=== PATIENT | female | born 1945 | race Caucasian/White ===

== ENCOUNTER 2022-04-23 11:28 | Observation (INO) | payer MEDICARE, SELFPAY ==
--- NOTE | ~2022-04-23 | CT_ITS ---
EXAMINATION: CT abdomen pelvis wo con DATE: 04/23/2022 13:50 INDICATION: Abdominal pain TECHNIQUE: Computed tomography (CT) of the abdomen and pelvis was performed without intravenous contr ast. Automated exposure control and iterative reconstruction technique were employed. The dose-length product was 595.74 mGy-cm. COMPARISON: None FINDINGS: Lung bases are clear. Heart size is normal. Aortic valve calcific lesion. No pericardial or pleural e ffusion. Small sliding-type hiatal hernia. 5.9 cm cyst in the left hepatic lobe. Cholecystectomy clip s at the gallbladder fossa. A few splenic calcifications consistent with old granulomatous disease. P ancreas and left adrenal gland are normal. 1.8 cm low-attenuation right adrenal adenoma. Bilateral re nal cysts the largest measuring 3.3 cm at the upper pole of the right kidney. Bilateral nonobstructin g nephrolithiasis with approximately 10 stones in both the left and right kidneys measuring up to 4 m m in the right kidney and 5 mm in the left kidney. No ureteral stones or hydronephrosis. Bladder is n ormal. The uterus is not identified and has likely been surgically resected. Mild diverticulosis with sigmoid and descending colon predominance. There is focal wall thickening and surrounding inflammato ry stranding at the proximal sigmoid colon consistent with diverticulitis. No abscess or free intrape ritoneal gas. Small bowel and appendix are normal. Mild lumbar levocurvature with mild lumbar and mod erate lower thoracic spondylosis. IMPRESSION: 1. Radiographically uncomplicated sigmoid diverticulitis. 2. Bilateral nonobstructing nephrolithiasis. Reviewed, dictated and finalized at location A.
[2022-04-23 11:34] VITALS: BP 132/77; PULSE 95; RESP 16; TEMP 37.5; O2SAT 100
[2022-04-23] MEDS: methylPREDNISolone SOD SUCC 125 MG VIAL IV PUSH (12:52)
[2022-04-23] MEDS: SODIUM CHLORIDE 0.9% IV 1,000 ML 999 ML IV CONT (12:52)
[2022-04-23] MEDS: FAMOTIDINE 20 MG/2 ML VIAL IV PUSH ×2 (12:52→20:38)
[2022-04-23 13:05] LABS: Basophils Percent Auto 0.2 % (0.2-1.2); Eosinophils Percent Auto 0.2 % (0-4.4); Hematocrit 40.8 % (37.0-47.0); Hemoglobin 13.3 g/dL (12.0-15.0); Immature Granulocyte Absolute 0.06 K/mm3 (0.00-0.031); Immature Granulocyte Percent A 0.6 % (0-0.5); Lymphocytes Absolute Auto 1.56 K/mm3 (0.9-3.2); Lymphocytes Percent Auto 15.2 % (18.3-44.2); Mean Corpuscular HGB Conc 32.6 g/dl (32-36); Mean Corpuscular Hemoglobin 31.9 pg (26-34); Mean Corpuscular Volume 97.8 fl (80-100); Mean Platelet Volume 10.5 fl (7.4-10.4); Monocytes Percent Auto 9.5 % (2.6-8.5); Neutrophils Absolute Auto 7.6 K/mm3 (1.3-6.7); Neutrophils Percent Auto 74.3 % (45.5-73.1); Platelet Count Result 275 k/mm3 (150-375); Red Blood Count 4.17 M/mm3 (4.2-5.4); Red Cell Distribution Width 11.1 % (11.5-14.5); White Blood Count 10.2 K/mm3 (4.5-10.0)
[2022-04-23 13:13] LABS: Lactic Acid Reflex 1.1 mmol/L (0.7-2.0)
[2022-04-23 13:14] LABS: Alanine Aminotransferase 26 U/L (6-35); Albumin Level 4.1 g/dL (3.5-5.1); Alkaline Phosphatase 148 U/L (38-126); Anion Gap 8 mmol/L (8-16); Aspartate Amino Transferase 38 U/L (14-36); Blood Urea Nitrogen 14 mg/dL (7-17); Calcium 9.3 mg/dL (8.4-10.2); Carbon Dioxide 23 mmol/L (22-30); Chloride 103 mmol/L (98-107); Estimated CRCL calculation 51 ml/min; Estimated Glomerular Filt Rate > 60; Glucose 90 mg/dL (65-110); Lipase 65 U/L (23-300); Potassium 3.8 mmol/L (3.4-5.0); Sodium 134 mmol/L (137-145)
[2022-04-23 13:19] LABS: INR 1.2; Prothrombin Time 14.7 Seconds (11.1-14.7)
[2022-04-23 13:21] LABS: Partial Thromboplastin Time 36.7 SECONDS (22.3-36.8)
[2022-04-23 13:33] LABS: Appearance Urine Cloudy (Clear); Bacteria Urine None Seen /hpf; Bilirubin Urine 2+ (Negative); Blood Urine Negative (Negative); Color Urine Dark Yellow (Yellow); Glucose Urine UA Negative (Negative); Granular Casts Urine Present /lpf; Ketones Urine 2+ mg/dL (Negative); Leukocyte Esterase Ur 2+ LEU/UL (Negative); Mucus Urine Present /lpf; Nitrate Urine Negative (Negative); Non Pathogenic Casts >20; Protein Urine 1+ mg/dL (Negative); RBC Urine 0-2 /hpf (0-2); Specific Grav Ur 1.022 (1.001-1.035); Squamous Epithelial Cell Urine Moderate /hpf (Few); pH Urine 5.5 (5.0-9.0)
[2022-04-23 13:37] LABS: Transitional Epi Cells Urine Present /hpf (None Seen)
[2022-04-23 13:38] LABS: Add Urine Microscopic? YES
--- NOTE | 2022-04-23 14:25 | ED.GENADULT ---
HPI - General Adult General Chief complaint: Unspecified Stated complaint: allergic reaction-rash/fatigue Time Seen by Provider: 04/23/22 12:18 Source: RN notes reviewed History of Present Illness HPI narrative: Patient presents emergency department from home for allergic reaction. Patient states that she has not been feeling well over the past several days states she has been feeling weak and tired states has been associated with diffuse abdominal pain described as cramping as well as some dysuria. She states she called her PCP yesterday and was started on Cipro which she is taken 2 doses of she states she noted that she began to have big red welts following her Cipro that are itchy in nature that are on her leg and arm and back states she is more allergic reaction and came to the ER for further evaluation. States she continues to feel weak and tired she denies any fevers or chills she denies any swelling of the lips or tongue denies any shortness of breath chest pain vomiting or any other symptoms states she has been feeling dehydrated Related Data Home Medications Medication Instructions Recorded Confirmed ciprofloxacin HCl 500 mg tablet mg 04/23/22 04/23/22 levothyroxine 75 mcg tablet mcg 04/23/22 lisinopril 20 mg tablet mg 04/23/22 omeprazole 20 mg capsule,delayed mg 04/23/22 release prednisolone acetate 1 % eye drp 04/23/22 drops,suspension Allergies Allergy/AdvReac Type Severity Reaction Status Date / Time ciprofloxacin Allergy Rash Verified 04/23/22 14:35 epinephrine AdvReac Palpitation Verified 04/23/22 11:32 s Review of Systems Review of Systems: Gen.: Denies fevers or chills ENT: Denies congestion Respiratory: Denies shortness of breath or cough CV: Denies chest pain or palpitations GI: Reports abdominal pain, denies nausea, emesis or diarrhea reports dysuria Musculoskeletal: Denies back pain or muscle pain Neuro: Reports generalized weakness Skin: Denies rash Except as documented, all other systems reviewed and negative [facility] Past Medical History Medical History (Updated 04/23/22 @ 14:30 by Kevin Hollins DO) Hypertension Social History Social History (Updated 04/23/22 @ 14:27 by Kevin Hollins DO) Smoking status: Never smoker Exam Narrative: APPEARANCE: No acute distress, nontoxic, resting in bed EYES: EOMI HEENT: Normocephalic, atraumatic, OMM RESPIRATORY: No respiratory distress Clear to auscultation bilaterally with no rhonchi wheezing or rales. CARDIOVASCULAR: Regular rate and rhythm without murmurs rubs or gallops. ABDOMINAL: Soft, nondistended diffusely tender to palpation no rebound or guarding MUSCULOSKELETAl: Moves all extremities. No clubbing, cyanosis or edema. NEURO: Awake and alert. Following commands, speech normal, no focal deficits SKIN:: Warm, dry. Large red welts on the right leg back and in the left arm consistent with allergic reaction PSYCHIATRIC: Normal affect/mood, Course Course Emergency Course: Patient given prednisone and Pepcid in ED with improvement of rash Called and discussed with TECHNOLOGY DEVELOPMENT INTERN Ritu Sullivan agrees with admission to hospital service Discussed with patient and family results of workup and diagnosis. Discussed need for admission. Patient and family understand and agree to current treatment plan Vital Signs Vital signs: Vital Signs Temperature 99.5 F 04/23/22 11:34 Pulse Rate 95 04/23/22 11:34 Respiratory Rate 16 04/23/22 11:34 Blood Pressure 132/77 04/23/22 11:34 Pulse Oximetry 100 04/23/22 11:34 Oxygen Delivery Room Air 04/23/22 11:34 Temperature 99.5 F 04/23/22 11:34 Pulse Rate 82 04/23/22 14:30 Respiratory Rate 16 04/23/22 14:30 Blood Pressure 148/55 H 04/23/22 14:30 Pulse Oximetry 98 04/23/22 14:30 Oxygen Delivery Room Air 04/23/22 11:34 Medical Decision Making [facility] Narrative Medical decision making narrative: Patient initially presented for possible all
[2022-04-23 14:30] VITALS: BP 148/55; PULSE 82; RESP 16; O2SAT 98
[2022-04-23] MEDS: PIPERACILLN/TAZ 3.375GM/NS50ML 3.375 GM/50 ML BAG IVPB ×2 (14:36→20:30)
[2022-04-23] MEDS: SODIUM CHLORIDE 0.9% IV 500 ML 999 ML IV CONT (14:36)
[2022-04-23 15:30] VITALS: BP 135/53; PULSE 84; RESP 16; O2SAT 98
[2022-04-23 16:50] VITALS: BP 128/59; PULSE 80; RESP 16; O2SAT 98
[2022-04-23] MEDS: SODIUM CHLORIDE 0.9% IV 1,000 ML 80 ML IV CONT (17:06)
[2022-04-23 17:09] VITALS: BMI 32.3
--- NOTE | 2022-04-23 17:30 | ED.GENADULT ---
HPI - General Adult General Chief complaint: Unspecified Stated complaint: allergic reaction-rash/fatigue Time Seen by Provider: 04/23/22 12:18 Source: RN notes reviewed Related Data Home Medications Medication Instructions Recorded Confirmed ciprofloxacin HCl 500 mg tablet mg 04/23/22 04/23/22 levothyroxine 75 mcg tablet mcg 04/23/22 lisinopril 20 mg tablet mg 04/23/22 omeprazole 20 mg capsule,delayed mg 04/23/22 release prednisolone acetate 1 % eye drp 04/23/22 drops,suspension Allergies Allergy/AdvReac Type Severity Reaction Status Date / Time ciprofloxacin Allergy Rash Verified 04/23/22 14:35 epinephrine AdvReac Palpitation Verified 04/23/22 11:32 s [facility] Past Medical History Medical History (Updated 04/23/22 @ 14:30 by Kevin Hollins DO) Hypertension Social History Social History (Updated 04/23/22 @ 14:27 by Kevin Hollins DO) Smoking status: Never smoker Course Vital Signs Vital signs: Vital Signs Temperature 37.5 C 04/23/22 11:34 Pulse Rate 95 04/23/22 11:34 Respiratory Rate 16 04/23/22 11:34 Blood Pressure 132/77 04/23/22 11:34 Pulse Oximetry 100 04/23/22 11:34 Oxygen Delivery Room Air 04/23/22 11:34 Temperature 37.5 C 04/23/22 11:34 Pulse Rate 80 04/23/22 16:50 Respiratory Rate 16 04/23/22 16:50 Blood Pressure 128/59 L 04/23/22 16:50 Pulse Oximetry 98 04/23/22 16:50 Oxygen Delivery Room Air 04/23/22 11:34 Medical Decision Making Vital Signs Vital Signs: Vital Signs Temperature 37.5 C 04/23/22 11:34 Pulse Rate 95 04/23/22 11:34 Respiratory Rate 16 04/23/22 11:34 Blood Pressure 132/77 04/23/22 11:34 Pulse Oximetry 100 04/23/22 11:34 Oxygen Delivery Room Air 04/23/22 11:34 Temperature 37.5 C 04/23/22 11:34 Pulse Rate 80 04/23/22 16:50 Respiratory Rate 16 04/23/22 16:50 Blood Pressure 128/59 L 04/23/22 16:50 Pulse Oximetry 98 04/23/22 16:50 Oxygen Delivery Room Air 04/23/22 11:34 Lab Data 04/23/22 12:57 04/23/22 12:57 Labs: Lab Results 04/23/22 04/23/22 04/23/22 Range/Units 12:57 12:57 12:57 WBC 10.2 H (4.5-10.0) K/mm3 RBC 4.17 L (4.2-5.4) M/mm3 Hgb 13.3 (12.0-15.0) g/dL Hct 40.8 (37.0-47.0) % MCV 97.8 (80-100) fl MCH 31.9 (26-34) pg MCHC 32.6 (32-36) g/dl RDW 11.1 L (11.5-14.5) % Plt Count 275 (150-375) k/mm3 MPV 10.5 H (7.4-10.4) fl Immature Gran % (Auto) 0.6 H (0-0.5) % Neut % (Auto) 74.3 H (45.5-73.1) % Lymph % (Auto) 15.2 L (18.3-44.2) % Spink % (Auto) 9.5 H (2.6-8.5) % Eos % (Auto) 0.2 (0-4.4) % Baso % (Auto) 0.2 (0.2-1.2) % Lymph # (Auto) 1.56 (0.9-3.2) K/mm3 Spink # (Auto) 1.0 H (0.1-0.6) K/mm3 Eos # (Auto) 0.0 (0-0.3) K/mm3 Baso # (Auto) 0.0 (0.0-0.1) K/mm3 Abs Immat Gran (auto) 0.06 H (0.00-0.031) K/mm3 Absolute Neuts (auto) 7.6 H (1.3-6.7) K/mm3 Absolute Nucleated RBC 0.0 (0.0-0.012) K/mm3 Nucleated RBC % 0.0 (0.0-0.2) % PT 14.7 (11.1-14.7) Seconds INR 1.2 APTT 36.7 (22.3-36.8) SECONDS Sodium (137-145) mmol/L Potassium (3.4-5.0) mmol/L Chloride (98-107) mmol/L Carbon Dioxide (22-30) mmol/L Anion Gap (8-16) mmol/L BUN (7-17) mg/dL Creatinine (0.7-1.0) mg/dL Estim Creat Clear Calc ml/min Estimated GFR (59 - ) Glucose (65-110) mg/dL Lactic Acid (0.7-2.0) mmol/L Calcium (8.4-10.2) mg/dL Total Bilirubin (0.2-1.3) mg/dL AST (14-36) U/L ALT (6-35) U/L Alkaline Phosphatase (38-126) U/L Total Protein (6.3-8.2) g/dL Albumin (3.5-5.1) g/dL Lipase (23-300) U/L Urine Color Dark yellow (Yellow) Urine Appearance Cloudy H (Clear) Urine pH 5.5 (5.0-9.0) Ur Specific [place] 1.022 (1.001-1.035) Urine Protein 1+ H (Negative) mg/dL Urine Glucose (UA) Negative (Negative)
--- NOTE | 2022-04-23 21:08 | PM.IMHP ---
H&P: HPI History of Present Illness Date/Time: 04/23/22 21:08 Chief Complaint: allergic reaction Narrative: this is a 76-year-old female patient came to the emergency room due to an allergic reaction. The patient has been having some abdominal pain and some cramping and some dysuria. She called her primary care doctor yesterday and he prescribed her Cipro. She has taken 2 doses and then she broke out with itchy welts 1 on her right shoulder, left arm and right leg. The patient has not been feeling very well over the last several days. She denies any shortness of breath or swelling to her tongue or lips. The patient was given IV fluids, Solu-Medrol, Pepcid and Zosyn In the ER. Her white count is noted to be 10.2. Her urine was positive for UTI. Abdominal pelvis CT was read as the following?Radiographically uncomplicated sigmoid diverticulitis. 2. Bilateral nonobstructing nephrolithiasis. the patient is being admitted to observation status on the date of service of 04/23/2022 Review of Systems Review of Systems: see HPI All systems reviewed & are unremarkable except as noted in HPI and below Constitutional: Constitutional: Reports as per HPI and Reports no additional constitutional complaints Eyes: Eyes: Reports as per HPI and Reports no additional eye complaints ENT: Reports system reviewed and no additional complaints, except as documented and Reports Normal hearing present Cardiovascular: Cardiovascular: Reports no additional cardiovascular complaints Respiratory: Respiratory: Reports no additional respiratory complaints and Reports no additional respiratory complaints Gastrointestinal: Gastrointestinal: Reports as per HPI and Reports no additional gastrointestinal complaints Musculoskeletal: Musculoskeletal: Reports no additional musculoskeletal complaints Integumentary/Breasts: Skin/Breast: Reports system reviewed and no additional complaints, except as docu and Reports as per HPI Neurologic: Reports system reviewed and no additional complaints, except as documented, Reports as per HPI and Reports Normal hearing present Psychiatric: Psychiatric: Reports no additional psychiatric complaints and Reports as per HPI Endocrine: Endocrine: Reports no additional endocrine complaints Hematologic/Lymphatic: Hematologic/Lymphatic: Reports no additional hematologic/lymphatic complaints Allergic/Immunologic: Allergic/Immunologic: Reports no additional allergic/immunologic complaints [facility] Past Medical History Medical History (Updated 04/23/22 @ 21:22 by Ritu Irwin NP) Chronic GERD Hypertension Hypothyroidism Surgical History Surgical History (Updated 04/23/22 @ 21:32 by Ritu Irwin NP) H/O cataract extraction H/O: hysterectomy History of back surgery tailbone surgery Hx of cholecystectomy Family History Family History (Updated 04/23/22 @ 21:22 by Ritu Irwin NP) Mother Dementia Social History Social History (Updated 04/23/22 @ 21:23 by Ritu Irwin NP) Social History: the patient is and has 2 children. She is a lifelong nonsmoker. She is retired. Smoking status: Never smoker Alcohol intake: never Substance use: never Lack of Transportation: No Lack of Food: Never True Current Housing: I Have Housing Concerned About Future Housing: No Difficulty Paying Gas/Electric Bills: No Difficulty Paying for Meds: No Currently Unemployed: No Education: Grade School Difficulty w/ Childcare or Family Care: No Spiritual care concerns: No Meds Home Medications and Allergies Home Medications Medication Instructions Recorded Confirmed Type levothyroxine 75 mcg tablet 75 mcg PO DAILY 04/23/22 04/23/22 History lisinopril 20 mg tablet 20 mg PO DAILY 04/23/22 04/23/22 History omeprazole 20 mg capsule,delayed 20 mg PO EVERY OTHER DAY 04/23/22 04/23/22 History release Allergies Allergy/AdvReac Type Severity Reaction Status Date / Ti
[2022-04-23 21:55] VITALS: BP 133/66; PULSE 69; RESP 16; TEMP 36.2; O2SAT 98
[2022-04-24] MEDS: PIPERACILLN/TAZ 3.375GM/NS50ML 3.375 GM/50 ML BAG IVPB ×5 (00:42→23:43)
[2022-04-24 05:47] VITALS: BP 129/65; PULSE 82; RESP 16; TEMP 35.8; O2SAT 99
--- NOTE | 2022-04-24 06:57 | NBADM ---
Patient anxious and up ambulating in hallways. Patient states shes going home today no matter what. Dr. Ch called to ask for tylenol per patient's requests. Still pending call back. Patient condition stable and improved.
[2022-04-24] MEDS: predniSONE 40 MG, predniSONE 10 MG 50 MG PO (09:31)
[2022-04-24 11:39] LABS: Basophils Percent Auto 0.1 % (0.2-1.2); Hematocrit 38.4 % (37.0-47.0); Hemoglobin 12.3 g/dL (12.0-15.0); Immature Granulocyte Absolute 0.06 K/mm3 (0.00-0.031); Immature Granulocyte Percent A 0.4 % (0-0.5); Lymphocytes Absolute Auto 1.46 K/mm3 (0.9-3.2); Lymphocytes Percent Auto 10.1 % (18.3-44.2); Mean Corpuscular Hemoglobin 31.8 pg (26-34); Mean Corpuscular Volume 99.2 fl (80-100); Mean Platelet Volume 11.1 fl (7.4-10.4); Monocytes Percent Auto 6.8 % (2.6-8.5); Neutrophils Percent Auto 82.6 % (45.5-73.1); Platelet Count Result 281 k/mm3 (150-375); Red Blood Count 3.87 M/mm3 (4.2-5.4); White Blood Count 14.5 K/mm3 (4.5-10.0)
[2022-04-24 11:58] LABS: Alanine Aminotransferase 31 U/L (6-35); Albumin Level 3.6 g/dL (3.5-5.1); Alkaline Phosphatase 128 U/L (38-126); Anion Gap 5 mmol/L (8-16); Aspartate Amino Transferase 48 U/L (14-36); Bilirubin,Total 0.7 mg/dL (0.2-1.3); Blood Urea Nitrogen 16 mg/dL (7-17); Calcium 8.8 mg/dL (8.4-10.2); Carbon Dioxide 25 mmol/L (22-30); Chloride 111 mmol/L (98-107); Estimated CRCL calculation 52 ml/min; Estimated Glomerular Filt Rate > 60; Glucose 121 mg/dL (65-110); Magnesium 2.3 mg/dL (1.6-2.3); Potassium 4.5 mmol/L (3.4-5.0); Sodium 141 mmol/L (137-145)
[2022-04-24 12:01] LABS: Lactic Acid Reflex 3.5 mmol/L (0.7-2.0)
[2022-04-24 12:31] LABS: Thyroid Stimulating Hormone Reflex 0.524 uIU/mL (0.465-4.68)
[2022-04-24] MEDS: SODIUM CHLORIDE 0.9% IV 500 ML IV CONT (13:40)
[2022-04-24] MEDS: SODIUM CHLORIDE 0.9% IV 1,000 ML 80 ML IV CONT (13:44)
[2022-04-24 14:00] VITALS: BP 95/84; PULSE 77; RESP 18; TEMP 35.7; O2SAT 100
--- NOTE | 2022-04-24 14:14 | P.PNIM_ITS ---
Progress Note: A&P Assessment and Plan (1) UTI (urinary tract infection): Code(s): N39.0 - Urinary tract infection, site not specified Status: Acute Assessment and Plan: patient presented with complaints of suprapubic discomfort * recently treated for UTI with ciprofloxacin, completed 2-3 days of this medication then stopped due to allergic response. See below. * UA on presentation is abnormal with 2+ leuk esterase and 6-10 WBC * urine culture is pending. May have negative cultures due to sterilization from recent Cipro use * continue IV Zosyn while awaiting culture results. tailor antibiotics accord ingly * blood cultures pending (2) Urticaria: Code(s): L50.9 - Urticaria, unspecified Status: Acute Assessment and Plan: patient with 3 large red wheals on extremities * felt to be allergic response secondary to Cipro * Cipro has now been listed on the patient's allergy list * received 1 time dose of IV Solu-Medrol. * continue prednisone 50 mg daily * continue Pepcid * Benadryl as needed * no airway involvement (3) Diverticulitis: Code(s): K57.92 - Diverticulitis of intestine, part unspecified, without perforation or abscess without bleeding Status: Acute Assessment and Plan: patient noted to have abdominal tenderness on presentation. CT of the abdomen/ pelvis shows uncomplicated sigmoid diverticulitis * continue IV Zosyn * blood cultures are pending * would typically slowly advance diet, however patient is tolerating her heart healthy diet at this time therefore will continue * continue with gentle IV fluid rehydration (4) Hypothyroidism: Code(s): E03.9 - Hypothyroidism, unspecified Status: Acute Assessment and Plan: TSH is within normal limits * continue levothyroxine (5) Hypertension: Code(s): I10 - Essential (primary) hypertension Status: Acute Assessment and Plan: blood pressures are stable. Last BP 129/65 * continue home lisinopril (6) Leukocytosis: Code(s): D72.829 - Elevated white blood cell count, unspecified Status: Acute Assessment and Plan: WBC minimally elevated on presentation at 10.2 * initially likely due to UTI/diverticulitis * increased today to 14 5, this is likely due to steroids * continue to trend (7) Elevated lactic acid level: Code(s): R79.89 - Other specified abnormal findings of blood chemistry Status: Acute Assessment and Plan: lactic acid on presentation is normal at 1.1 * repeat lactic today is elevated at 3.5 * etiology for this is unclear * no evidence of acidosis. Normal serum bicarb and no anion gap elevation * 500 cc IV fluid bolus and continue gentle IV fluids * recheck lactic this afternoon Subjective Date/time seen: 04/24/22 14:14 Interval history: Date of service: 04/24/2022 Jaz Nogueira is a 76-year-old female with history of hypertension, hypothyroidism, and GERD, recently treated for UTI with ciprofloxacin who presented due to allergic reaction. Patient reports 2 days after taking Cipro, she noticed large welts begin to form a her skin. She 1st noticed one on her left hand, than her right calf, than her right shoulder and then her left arm. She has some suprapubic tenderness which she felt was due to the UTI. She then noticed that she had abdominal tenderness as well. At the time of my evaluation, she is feeling much better. She denies any urinary symptoms including dy
--- NOTE | 2022-04-24 14:14 | PM.IMPN ---
Progress Note: A&P Assessment and Plan (1) UTI (urinary tract infection): Code(s): N39.0 - Urinary tract infection, site not specified Status: Acute Assessment and Plan: patient presented with complaints of suprapubic discomfort recently treated for UTI with ciprofloxacin, completed 2-3 days of this medication then stopped due to allergic response. See below. UA on presentation is abnormal with 2+ leuk esterase and 6-10 WBC urine culture is pending. May have negative cultures due to sterilization from recent Cipro use continue IV Zosyn while awaiting culture results. tailor antibiotics accordingly blood cultures pending (2) Urticaria: Code(s): L50.9 - Urticaria, unspecified Status: Acute Assessment and Plan: patient with 3 large red wheals on extremities felt to be allergic response secondary to Cipro Cipro has now been listed on the patient's allergy list received 1 time dose of IV Solu-Medrol. continue prednisone 50 mg daily continue Pepcid Benadryl as needed no airway involvement (3) Diverticulitis: Code(s): K57.92 - Diverticulitis of intestine, part unspecified, without perforation or abscess without bleeding Status: Acute Assessment and Plan: patient noted to have abdominal tenderness on presentation. CT of the abdomen/ pelvis shows uncomplicated sigmoid diverticulitis continue IV Zosyn blood cultures are pending would typically slowly advance diet, however patient is tolerating her heart healthy diet at this time therefore will continue continue with gentle IV fluid rehydration (4) Hypothyroidism: Code(s): E03.9 - Hypothyroidism, unspecified Status: Acute Assessment and Plan: TSH is within normal limits continue levothyroxine (5) Hypertension: Code(s): I10 - Essential (primary) hypertension Status: Acute Assessment and Plan: blood pressures are stable. Last BP 129/65 continue home lisinopril (6) Leukocytosis: Code(s): D72.829 - Elevated white blood cell count, unspecified Status: Acute Assessment and Plan: WBC minimally elevated on presentation at 10.2 initially likely due to UTI/diverticulitis increased today to 14 5, this is likely due to steroids continue to trend (7) Elevated lactic acid level: Code(s): R79.89 - Other specified abnormal findings of blood chemistry Status: Acute Assessment and Plan: lactic acid on presentation is normal at 1.1 repeat lactic today is elevated at 3.5 etiology for this is unclear no evidence of acidosis. Normal serum bicarb and no anion gap elevation 500 cc IV fluid bolus and continue gentle IV fluids recheck lactic this afternoon Subjective Date/time seen: 04/24/22 14:14 Interval history: Date of service: 04/24/2022 Jaz Nogueira is a 76-year-old female with history of hypertension, hypothyroidism, and GERD, recently treated for UTI with ciprofloxacin who presented due to allergic reaction. Patient reports 2 days after taking Cipro, she noticed large welts begin to form a her skin. She 1st noticed one on her left hand, than her right calf, than her right shoulder and then her left arm. She has some suprapubic tenderness which she felt was due to the UTI. She then noticed that she had abdominal tenderness as well. At the time of my evaluation, she is feeling much better. She denies any urinary symptoms including dysuria, hematuria, urgency, frequency, incomplete emptying, flank pain, or back pain. Her abdominal tenderness has improved. She denies nausea or vomiting. No fever or chills. No shortness of breath, cough, or chest pain. She feels that her welts have improved and she notes the redness is diminished. She denies pruritis. Review of Systems Review of Systems: All systems reviewed & are unremarkable except as noted in HPI and below
[2022-04-24 14:35] LABS: Reflex Lactic Acid Yes or No Add Lactic
[2022-04-24] MEDS: LEVOTHYROXINE SODIUM 75 MCG TABLET PO (15:37)
[2022-04-24 15:39] LABS: Lactic Acid 2.7 mmol/L (0.7-2.0)
[2022-04-24 18:33] LABS: Lactic Acid Reflex 2.9 mmol/L (0.7-2.0)
[2022-04-24] MEDS: FAMOTIDINE 20 MG/2 ML VIAL IV PUSH (20:24)
[2022-04-24 22:00] VITALS: BP 135/67; PULSE 62; RESP 16; TEMP 35.5; O2SAT 99
[2022-04-24] MEDS: ACETAMINOPHEN 325 MG TABLET 650 MG PO (23:43)
[2022-04-25 06:00] VITALS: BP 131/70; PULSE 60; RESP 16; TEMP 35.9; O2SAT 100
[2022-04-25] MEDS: PIPERACILLN/TAZ 3.375GM/NS50ML 3.375 GM/50 ML BAG IVPB ×2 (06:05→11:53)
[2022-04-25] MEDS: LEVOTHYROXINE SODIUM 75 MCG TABLET PO (06:05)
[2022-04-25 06:44] LABS: Hematocrit 35.3 % (37.0-47.0); Hemoglobin 11.5 g/dL (12.0-15.0); Mean Corpuscular HGB Conc 32.6 g/dl (32-36); Mean Corpuscular Hemoglobin 31.6 pg (26-34); Platelet Count Result 332 k/mm3 (150-375); Red Blood Count 3.64 M/mm3 (4.2-5.4); Red Cell Distribution Width 11.3 % (11.5-14.5)
[2022-04-25 06:59] LABS: Anion Gap 4 mmol/L (8-16); Blood Urea Nitrogen 17 mg/dL (7-17); Calcium 8.5 mg/dL (8.4-10.2); Carbon Dioxide 24 mmol/L (22-30); Chloride 110 mmol/L (98-107); Estimated CRCL calculation 46 ml/min; Estimated Glomerular Filt Rate > 60; Glucose 118 mg/dL (65-110); Potassium 3.6 mmol/L (3.4-5.0); Sodium 138 mmol/L (137-145)
[2022-04-25] MEDS: predniSONE 40 MG, predniSONE 10 MG 50 MG PO (09:03)
[2022-04-25] MEDS: FAMOTIDINE 20 MG/2 ML VIAL IV PUSH (09:03)
[2022-04-25] MEDS: lisinopriL 20 MG TABLET PO (09:03)
[2022-04-25] MEDS: PANTOPRAZOLE 40 MG TABLET PO (09:04)
[2022-04-25 14:00] VITALS: BP 127/82; PULSE 68; RESP 16; TEMP 36.1; O2SAT 100
[2022-04-25 14:10] LABS: Lactic Acid Reflex 2.2 mmol/L (0.7-2.0)
--- NOTE | 2022-04-25 14:51 | P.DS_ITS ---
DS: Admitting Diagnosis Discharge Date 04/25/2022 Admitting Diagnosis UTI DS: Discharge Diagnosis Discharge Diagnosis (1) UTI (urinary tract infection): Code(s): N39.0 - Urinary tract infection, site not specified Status: Acute Assessment and Plan: patient presented with complaints of suprapubic discomfort * recently treated for UTI with ciprofloxacin, completed 2-3 days of this medication as an outpatient then stopped due to allergic response. See below. * UA on presentation abnormal with 2+ leuk esterase and 6-10 WBC * urine culture negative, likely due to sterilization from recent Cipro use * given symptoms and clinical picture, will continue with treatment for UTI despite negative culture. received IV Zosyn during admission which she tolerated well with no allergic response. Will continue p.o. Augmentin as an outpatient to complete a 7 day course * preliminary blood cultures negative to date, final cultures will be monitored (2) Urticaria: Code(s): L50.9 - Urticaria, unspecified Status: Acute Assessment and Plan: patient with 3 large red wheals on extremities * felt to be allergic response secondary to Cipro * Cipro has now been listed on the patient's allergy list * received 1 time dose of IV Solu-Medrol in the ED and then transition to p.o. prednisone. Patient will continue 40 mg p.o. prednisone for a 5 day course * received Pepcid * continue Benadryl as needed * no airway involvement * urticaria much improved at time of discharge (3) Diverticulitis: Code(s): K57.92 - Diverticulitis of intestine, part unspecified, without perforation or abscess without bleeding Status: Acute Assessment and Plan: Patient noted to have abdominal tenderness on presentation. CT of the abdomen/ pelvis shows uncomplicated sigmoid diverticulitis * received IV Zosyn during admission * will continue p.o. Augmentin for continue treatment to complete a 7 day course * patient able to tolerate diet, continue low-fat diet as an outpatient * follow-up with PCP. Patient will need referral for colonoscopy (4) Hypothyroidism: Code(s): E03.9 - Hypothyroidism, unspecified Status: Acute Assessment and Plan: TSH is within normal limits * continue levothyroxine (5) Hypertension: Code(s): I10 - Essential (primary) hypertension Status: Acute Assessment and Plan: blood pressures remained stable. * continue home lisinopril (6) Leukocytosis: Code(s): D72.829 - Elevated white blood cell count, unspecified Status: Acute Assessment and Plan: WBC minimally elevated on presentation at 10.2 * initially likely due to UTI/diverticulitis * increased to 14 5, this is likely due to steroids * anticipate resolution following discontinuation of steroids (7) Elevated lactic acid level: Code(s): R79.89 - Other specified abnormal findings of blood chemistry Status: Acute Assessment and Plan: lactic acid on presentation is normal at 1.1 * repeat lactic on admission elevated at 3.5 * etiology for this is unclear * no evidence of acidosis. Normal serum bicarb and no anion gap elevation * patient was rehydrated with IV fluids and lactic acid did trend down (8) B12 deficiency: Code(s): E53.8 - Deficiency of other specified B group vitamins Status: Acute Assessment and Plan: B12 was noted to be low * begin cyanocobalamin [address]
--- NOTE | 2022-04-25 14:51 | PM.DS ---
DS: Admitting Diagnosis Discharge Date 04/25/2022 Admitting Diagnosis UTI DS: Discharge Diagnosis Discharge Diagnosis (1) UTI (urinary tract infection): Code(s): N39.0 - Urinary tract infection, site not specified Status: Acute Assessment and Plan: patient presented with complaints of suprapubic discomfort recently treated for UTI with ciprofloxacin, completed 2-3 days of this medication as an outpatient then stopped due to allergic response. See below. UA on presentation abnormal with 2+ leuk esterase and 6-10 WBC urine culture negative, likely due to sterilization from recent Cipro use given symptoms and clinical picture, will continue with treatment for UTI despite negative culture. received IV Zosyn during admission which she tolerated well with no allergic response. Will continue p.o. Augmentin as an outpatient to complete a 7 day course preliminary blood cultures negative to date, final cultures will be monitored (2) Urticaria: Code(s): L50.9 - Urticaria, unspecified Status: Acute Assessment and Plan: patient with 3 large red wheals on extremities felt to be allergic response secondary to Cipro Cipro has now been listed on the patient's allergy list received 1 time dose of IV Solu-Medrol in the ED and then transition to p.o. prednisone. Patient will continue 40 mg p.o. prednisone for a 5 day course received Pepcid continue Benadryl as needed no airway involvement urticaria much improved at time of discharge (3) Diverticulitis: Code(s): K57.92 - Diverticulitis of intestine, part unspecified, without perforation or abscess without bleeding Status: Acute Assessment and Plan: Patient noted to have abdominal tenderness on presentation. CT of the abdomen/ pelvis shows uncomplicated sigmoid diverticulitis received IV Zosyn during admission will continue p.o. Augmentin for continue treatment to complete a 7 day course patient able to tolerate diet, continue low-fat diet as an outpatient follow-up with PCP. Patient will need referral for colonoscopy (4) Hypothyroidism: Code(s): E03.9 - Hypothyroidism, unspecified Status: Acute Assessment and Plan: TSH is within normal limits continue levothyroxine (5) Hypertension: Code(s): I10 - Essential (primary) hypertension Status: Acute Assessment and Plan: blood pressures remained stable. continue home lisinopril (6) Leukocytosis: Code(s): D72.829 - Elevated white blood cell count, unspecified Status: Acute Assessment and Plan: WBC minimally elevated on presentation at 10.2 initially likely due to UTI/diverticulitis increased to 14 5, this is likely due to steroids anticipate resolution following discontinuation of steroids (7) Elevated lactic acid level: Code(s): R79.89 - Other specified abnormal findings of blood chemistry Status: Acute Assessment and Plan: lactic acid on presentation is normal at 1.1 repeat lactic on admission elevated at 3.5 etiology for this is unclear no evidence of acidosis. Normal serum bicarb and no anion gap elevation patient was rehydrated with IV fluids and lactic acid did trend down (8) B12 deficiency: Code(s): E53.8 - Deficiency of other specified B group vitamins Status: Acute Assessment and Plan: B12 was noted to be low begin cyanocobalamin 1000 mcg daily Plan patient completed of tongue irritation and cracking. no other or pharyngeal involvement, not felt to be due to allergic response. Could be related to B12 deficiency. Magic mouthwash provided. DS: Summary Hospital Course Hospital Course: date of admission: 04/23/2022 date of discharge: 04/25/2022 Jaz Nogueira is a 76-year-old female with history of hypertension, hypothyroidism, and GERD, recently treated for UTI with ciprofloxacin w
[2022-04-25 14:59] LABS: Folic Acid 9.1 ng/mL (2.76->20)
[2022-04-25 16:31] LABS: Reflex Lactic Acid Yes or No Add Lactic
== END 2022-04-25 15:53 | disposition home or self-care (01) ==
LOC: ANHED 14:30 → ANH3MEDSUR 16:55
PROVIDERS: Nurse Practitioner; Admitting Provider Chiropractor; Emergency Provider Emergency Medicine; Visit Provider Physician Assistant
DX: N39.0 Urinary tract infection, site not specified (principal); L50.9 Urticaria, unspecified; T36.8X5A Adverse effect of other systemic antibiotics, initial encounter; K57.32 Diverticulitis of large intestine without perforation or abscess without bleeding; E03.9 Hypothyroidism, unspecified; N20.0 Calculus of kidney; K21.9 Gastro-esophageal reflux disease without esophagitis; I10 Essential (primary) hypertension; D72.829 Elevated white blood cell count, unspecified; R79.89 Other specified abnormal findings of blood chemistry; E53.8 Deficiency of other specified B group vitamins; R53.1 Weakness; R53.83 Other fatigue; Z79.899 Other long term (current) drug therapy
CPT/HCPCS: 36415; 74176; 80048; 80053; 81001; 82607; 82746; 83605; 83690; 83735; 84443; 85025; 85027; 85610; 85730; 87040; 87086; 96361; 96365; 96366; 96375; 96376; 99285; A9270; G0378; J2543; J2930; J7030; J7040; J7512

== ENCOUNTER 2022-12-27 10:17 | Emergency (ER) | payer MEDICARE, SELFPAY ==
--- NOTE | ~2022-12-27 | XR_ITS ---
[id number] DATE: 12/27/2022 10:43 INDICATION: Fall. Left lower posterior and anterior rib pain TECHNIQUE: PA chest. 4 views of the left ribs. COMPARISON: None FINDINGS: Posterolateral likely recent left sixth, seventh and eighth rib fractures. Diffuse osteopenia. Borderline heart size. Aortic arch calcification. No hilar or mediastinal enlargement. No pulmonary infiltrate or consolidation, pleural effusion or pulmonary vascular congestion or pneumo thorax is detected. Surgical clips, right upper quadrant, likely due to cholecystectomy. IMPRESSION: Posterolateral likely recent left sixth, seventh and eighth rib fractures Reviewed, dictated and finalized at [facility]. Reviewed, dictated and finalized at [facility]. [facility] IMPRESSION: Posterolateral likely recent left sixth, seventh and eighth rib fra ctures
[2022-12-27 10:30] VITALS: BP 132/79; PULSE 75; RESP 16; TEMP 37.1; O2SAT 100
--- NOTE | 2022-12-27 10:53 | ED.FALL ---
HPI - Fall General Chief Complaint: Fall Stated Complaint: Fall Injury, Side and Back Pain Time Seen by Provider: 12/27/22 10:35 Source: patient, family (Sister) and RN notes reviewed Mode of arrival: ambulatory Limitations: no limitations History of Present Illness HPI Narrative: Patient presents today complaining of left rib pain. She tripped on the cuff of her pajama pants 6 days ago at home and fell, striking her ribs on a door frame. Currently rates her pain 8/10 and has been taking ibuprofen and Tylenol without much relief. Denies shortness of breath. She called her PCP's office yesterday and requested a prescription for Tylenol 3, but the center in a prescription for [place]. States she has not ever taken [place] before in threw it away instead of taking it. Related Data Home Medications Medication Instructions Recorded Confirmed levothyroxine 75 mcg tablet 75 mcg PO DAILY 04/23/22 12/27/22 lisinopril 20 mg tablet 20 mg PO DAILY 04/23/22 12/27/22 omeprazole 20 mg capsule,delayed 20 mg PO EVERY OTHER DAY 04/23/22 12/27/22 release Allergies Allergy/AdvReac Type Severity Reaction Status Date / Time ciprofloxacin Allergy Rash Verified 12/27/22 10:56 epinephrine AdvReac Palpitation Verified 12/27/22 10:56 s Review of Systems Review of Systems: CONSTITUTIONAL: Denies body aches, fever, chills, or sweats. EYES: Denies visual changes, redness, or discharge. ENT: Denies rhinorrhea, congestion, sore throat, or otalgia. CARDIOVASCULAR: Denies chest pain, palpitations, or edema. RESPIRATORY: Denies cough or dyspnea.+ left rib pain GASTROINTESTINAL: Denies abdominal pain, nausea, vomiting, or diarrhea. GENITOURINARY: Denies dysuria or hematuria. SKIN: Denies rash, itching, or wounds. MUSCULOSKELETAL: Denies back pain, joint pain, or myalgia. NEUROLOGIC: Denies headache, numbness, tingling, or weakness. PSYCH: Denies depression or anxiety. [facility] Past Medical History Medical History Chronic GERD Hypertension Hypothyroidism Surgical History Surgical History H/O cataract extraction H/O: hysterectomy History of back surgery tailbone surgery Hx of cholecystectomy Family History Family History Mother Dementia Social History Social History Social History: the patient is and has 2 children. She is a lifelong nonsmoker. She is retired. Smoking status: Never smoker Alcohol intake: never Substance use: never Lack of Transportation: No Lack of Food: Never True Current Housing: I Have Housing Concerned About Future Housing: No Difficulty Paying Gas/Electric Bills: No Difficulty Paying for Meds: No Currently Unemployed: No Education: Grade School Difficulty w/ Childcare or Family Care: No Spiritual care concerns: No Comments At time of signature, I have reviewed and agree with nursing past medical, surgical, social and family history unless otherwise noted. Please see nursing chart for further information. There is no relevant family history pertinent to the presenting complaint Exam Narrative: GENERAL: Well-appearing, well-nourished, and in no acute distress. HEAD: Normocephalic, atraumatic. EYES: EOMI. No redness or drainage. ENT: Mucous membranes pink and moist. NECK: Normal AROM. CHEST: No respiratory distress. Clear to auscultation. Tenderness to left lateral and anterior lower ribs. No crepitus, ecchymosis, or erythema noted. HEART: Regular rate and rhythm. No murmur appreciated. Normal peripheral pulses. EXTREMITIES: Normal range of motion. No edema. SKIN: Warm, dry, no rash. Capillary refill normal. Normal skin turgor. NEURO: No focal deficits. Alert and oriented x3. Gait steady. PSYCH: Normal affect. No
== END 2022-12-27 11:16 | disposition home or self-care (01) ==
PROVIDERS: Emergency Provider Nurse Practitioner; PCP Internal Medicine Endocrinology, Diabetes & Metabolism
DX: S22.42XA Multiple fractures of ribs, left side, initial encounter for closed fracture (principal); I10 Essential (primary) hypertension; E03.9 Hypothyroidism, unspecified; W01.198A Fall on same level from slipping, tripping and stumbling with subsequent striking against other object, initial encounter
CPT/HCPCS: 71101; 99213; G0463

== ENCOUNTER 2023-09-22 08:56 | Emergency (ER) | payer MEDICARE, SELFPAY ==
--- NOTE | 2023-09-22 09:09 | ED.SKABFB ---
HPI - Skin/Abscess/Foreign Bdy General Chief complaint: Skin/Abscess/Foreign Body Stated complaint: rash Time Seen by Provider: 09/22/23 09:09 Source: patient Mode of arrival: ambulatory Limitations: no limitations History of Present Illness HPI narrative: Jaz is a 78-year-old female patient presenting to the clinic today with complaints of a rash that started on after pulling weeds out the yd. She reports the rash is on her left leg, under her right breast, on her face, and on her arms. She reports that the rash seems to be spreading. Rash is itchy. She denies any fever chills or body aches Related Data Home Medications Medication Instructions Recorded Confirmed levothyroxine 75 mcg tablet 75 mcg PO DAILY 04/23/22 09/22/23 lisinopril 20 mg tablet 20 mg PO DAILY 04/23/22 09/22/23 omeprazole 20 mg capsule,delayed 20 mg PO EVERY OTHER DAY 04/23/22 09/22/23 release Allergies Allergy/AdvReac Type Severity Reaction Status Date / Time ciprofloxacin Allergy Intermediate Rash Verified 09/22/23 09:04 epinephrine AdvReac Intermediate Palpitation Verified 09/22/23 09:04 s Review of Systems Review of Systems: Pertinent positives per HPI. Patient denies any fever, chills, headache, visual changes, dizziness, cough, runny nose, sore throat, shortness of breath, chest pain, palpitations, nausea, vomiting, diarrhea, constipation, abdominal pain, or any urinary issues. PMFSH Past Medical History Medical History Chronic GERD Hypertension Hypothyroidism Surgical History Surgical History H/O cataract extraction H/O: hysterectomy History of back surgery tailbone surgery Hx of cholecystectomy Family History Family History Mother Dementia Social History Social History Social History: the patient is and has 2 children. She is a lifelong nonsmoker. She is retired. Smoking status: Never smoker Alcohol intake: never Substance use: never Lack of Transportation: No Lack of Food: Never True Current Housing: I Have Housing Concerned About Future Housing: No Difficulty Paying Gas/Electric Bills: No Difficulty Paying for Meds: No Currently Unemployed: No Education: Grade School Difficulty w/ Childcare or Family Care: No Spiritual care concerns: No Comments At the time of my signature, I reviewed and agree with the nursing past medical, surgical, social, and family history. There is no relevant family history pertinent to the patient complaint. Exam Narrative: General: Well-developed, well nourished, in no apparent distress Head: Normocephalic, atraumatic. Cardio: Regular rate and rhythm, s1 and s2 normal, no murmur appreciated. Resp: Clear to auscultation bilaterally, no rhonchi, rales, wheezing or rubs. Integumentary: [place], warm, and dry, intact without lesion, red, raised, itchy blistery looking rash to the left lower leg, right sided cheek, bilateral arms, and under the right breast Course Course Emergency Course: Portions of this record may have been created with voice recognition software. Level of Care: Express Care Visit Vital Signs Vital signs: Vital Signs Temperature 37.4 C 09/22/23 09:13 Pulse Rate 85 09/22/23 09:13 Respiratory Rate 16 09/22/23 09:13 Blood Pressure 148/86 H 09/22/23 09:13 Pulse Oximetry 99 09/22/23 09:13 Oxygen Delivery Room Air 09/22/23 09:13 Temperature 37.4 C 09/22/23 09:13 Pulse Rate 85 09/22/23 09:13 Respiratory Rate 16 09/22/23 09:13 Blood Pressure 148/86 H 09/22/23 09:13 Pulse Oximetry 99 09/22/23 09:13 Oxygen Delivery Room Air 09/22/23 09:13 Vital signs reviewed MDM - Skin/Abscess/Foreign Bdy MDM Narrative Medical decision making
[2023-09-22 09:13] VITALS: BP 148/86; PULSE 85; RESP 16; TEMP 37.4; O2SAT 99
[2023-09-22] MEDS: dexAMETHasone SOD PHOS INJ 10 MG/ML 1 ML VIAL IM (09:53)
== END 2023-09-22 10:15 | disposition home or self-care (01) ==
PROVIDERS: Emergency Provider Nurse Practitioner Family; PCP Internal Medicine Endocrinology, Diabetes & Metabolism
DX: L23.7 Allergic contact dermatitis due to plants, except food (principal); K21.9 Gastro-esophageal reflux disease without esophagitis; I10 Essential (primary) hypertension; E03.9 Hypothyroidism, unspecified
CPT/HCPCS: 96372; 99213; G0463; J1100